=== PATIENT | female | born 1960 | race Caucasian/White ===

== ENCOUNTER → 2016-04-25 10:50 | Outpatient (CLI) | payer OTHER | END | disposition home or self-care (01) | LOC: D.CT 10:50 | DX: R41.3 Other amnesia (principal) ==

== ENCOUNTER → 2017-05-03 09:20 | Outpatient (CLI) | payer OTHER ==
--- NOTE | ~2017-05-03 | EC ---
PATIENT:RONALD CHAVEZ DATE OF SERVICE: 05/03/17 SEX: F MEDICAL RECORD: [id number] DATE OF : [birth year] LOCATION[facility] AGE OF PATIENT: 57 ADMISSION DATE: 05/03/17 REFERRING PHYSICIAN: INTERPRETING PHYSICIAN: JUAN BOYKIN MD ECHOCARDIOGRAM REPORT ECHO CHARGES 4 ECHO COMPLETE CLINICAL DIAGNOSIS: PALPITATIONS ECHOCARDIOGRAPHIC MEASUREMENTS (adult normal given) AC root (d.<3.7cm) 3.2 cm LV Septum d (<1.2 cm> 1.3 cm Valve Excursion 1.6 cm LV Septum (systole) 1.4 cm Left Atria (s.<4.0cm> 3.6 cm LVPW d(<1.2cm) 1.4 cm RV (d.<2.3cm) 3.5 cm LVPW (sytole) 1.7 cm LV diastole(<5.6CM) 5.2 cm MV E-F(>70mm/sec) cm LV systole 4.0 cm LVOT Diameter 1.7 cm MV exc.(>10mm) 1.3 cm Est.ejection fraction (50-75%) % Pericardial Effusion N DOPPLER: LVIT cm/sec A 74.0 cm/sec E 88.0 cm/sec LA cm/sec RVSP 20 mmHg LVOT 94 cm/sec AOP1/2T m/s Asc. Ao 159 cm/sec RVOT 137 cm/sec RA cm/sec PA 178 cm/sec AV Gradient Peak 10.17mmHg AV Mean 5.85 mmHg AV Area 1.4 cm MV Gradient Peak 6.54 mmHg MV Mean 2.93 mmHg MV Area cm COMMENTS: Associate Account Executive: Drake GORDON Cadmium Burner: 4 Dr. Boykin TAPE# PACS DATE OF SERVICE: 05/03/2017 PROCEDURE: Transthoracic echocardiogram. FINDINGS: 1. Left ventricle has mild left ventricular hypertrophy with inflow characteristics that are normal. The ejection fraction is 65%. 2. The left atrium is normal size, normal function. 3. The aortic valve is normal size, normal function, normal structure. 4. The mitral valve is normal. ECHOCARDIOGRAM REPORT [id number] RONALD CHAVEZ 5. The tricuspid valve is normal. 6. There is no pericardial effusion. 7. There is no pleural effusion. 8. IVC is seen to collapse and is normal. 9. The right atrium is mildly dilated. 10. The right ventricle is mildly dilated with normal function. CONCLUSION: The patient has evidence of mild left ventricular hypertrophy, otherwise normal echocardiogram. TRANSINT:[id number] Voice Confirmation ID: [id number] DOCUMENT ID: [id number] JUAN BOYKIN MD at 1522 CC: [id number] DICTATION DATE: 05/07/17 1106 IMPREGNATOR AND DRIER HELPER: 05/07/17 1231 DEP CLI 05/03/17 [id number] [place] [address]
[~2017-05-03 09:20] MED LIST: BAYER CHEWABLE81 MG PO; CYCLOBENZAPRINE10 MG PO; DEXILANT60 MG PO; IBUPROFEN800 MG PO; LEVOXYL100 MCG PO; LUNESTA2 M1 PO; PROZAC40 MG PO; VASOTEC20 MG PO
== END | disposition home or self-care (01) ==
LOC: D.ECHO 04-30 09:00
DX: R00.2 Palpitations (principal)

== ENCOUNTER 2017-05-16 06:21 | Outpatient (CLI) | payer OTHER ==
--- NOTE | ~2017-05-16 | HEMODYNAMI ---
PATIENT:RONALD CHAVEZ MEDICAL RECORD: [id number] : 64 LOCATION:[facility] ADMISSION DATE: 05/16/17 Generatedon:05/16/20178:55 Patient name: RONALD CHAVEZ Patient #: [id number] SSN: [id number] : 1960 Date of study: 05/16/2017 Page: Of Hemodynamic Procedure Report Patient Data Patient Demographics Procedure consent was obtained First Name: RONALD Gender: Female Last Name: SCOTT : 1960 Middle Initial: K Age: 57 year(s) Patient #: [id number] Race: SSN: [id number] Additional ID: [id number] Contact details Address: [address] [place] [address] State: [place] City: [place] Zip code: [address] Past Medical History Allergies Allergen Reaction Date Comments Reported Codeine 05/16/2017 Admission Admission Data Admission Date: 05/16/2017 Admission Time: 6:21 Arrival Date: 05/16/2017 Arrival Time: 6:21 Admit Source: Other Insurance Payor: Private health insurance Height (in.): 62 BSA: 1.93 (m2) Height (cm.): 157.48 BMI: 37.31 (kg/m2) Weight (lbs.): 204 Weight (kg.): 92.53 Lab Results Lab Result Date: 05/16/2017 Lab Result Time: 0:00 Biochemistry Name Units Result Min Max BUN mg/dl 14 --(--*-)-- 7 18 Creatinine mg/dl 0.9 --(-*--)-- 0.6 1.3 CBC Name Units Result Min Max Hemoglobin g/dl 12.2 *-(----)-- 13.5 17.5 Procedure Procedure Types Cath Procedure Diagnostic Procedure LHC LHC w/Coronaries Miscellaneous Procedures Moderate Sedation up to 30 minutes Procedure Description Procedure Date Procedure Date: 05/16/2017 Procedure Start Time: 8:38 Procedure End Time: 8:52 Procedure Staff Name Function Stevie Joseph MD Performing Physician Genia Flannery RT Monitor Brenda Bear RT Scrub Aury Perry RN Nurse Procedure Data Cath Procedure Fluoroscopy Diagnostic fluoroscopy Total fluoroscopy Time: 3.7 time: 3.7 min min Diagnostic fluoroscopy Total fluoroscopy dose: 525 dose: 525 mGy mGy Contrast Material Contrast Material Type Amount (ml) Isovue 300 45 Entry Location Entry Primary Successful Side Size Upsize Upsize Entry Closure Jacobs ccessful Closure Location (Fr) 1 (Fr) 2 (Fr) Remarks Device Remarks Radial Right 6 Fr Mechanical artery Short Compression Estimated blood loss: 5 ml Diagnostic catheters Device Type Used For End Catheter Placement DIAGNOSTIC Grandy 110cm 5 Multi-vessel Fr catheter ([id number]) Angiography DIAGNOSTIC AR MOD 5Fr Right Coronary Catheter ([id number]) Angiography Procedure Complications No complications Procedure Medications Medication Administration Route Dosage Oxygen NC 2 l/min Lidocaine 2% added to field 20 Heparin Flush Bag added to field 2 bags (1000units/500ml NS) 0.9% NaCl I.V. ml/hr Versed I.V. 1 mg Fentanyl I.V. 50 mcg Radial Cocktail I.A. 1 syringe (Verapomil 2mg/Nitro 400mcg/Heparin 1500units) Versed I.V. 1 mg Hemodynamics Rest BSA: 1.93 (m2) O2 Consumption: Estimated: 187.81 (ml/min) O2 Consumption indexed : Estimated:97.31 (ml/min/m) Heart Rate: 73 (bpm) Pressure Samples Time Site Value (mmHg) Purpose Heart Use Rate(bpm) 8:46 LV 100/14,25 EDP 93 8:46 AO 139/82(109) Pullback 82 8:46 LV 149/15,14 Pullback 82 Gradients Valve Time Site 1 Site 2 Mean SEP/DFP Peak To Heart Use (mmHg) (sec/min) Peak Rate (mmHg) (bpm) Aortic 8:46 LV AO 5 18 10 82 149/15,14 139/82(109) Calculations Valve P-P Mean Valve Index Valve Source Name Gradient Area Flow (cm2) Aortic 10 5 10 5 Snapshots Pre Cath Intra NCS Post Cath Vital Signs Time Heart Resp SPO2 etCO2 NIBP (mmHg) Rhythm Pain Sedation Rate (ipm) (%) (mmHg) Status Level (bpm) 8:25:40 72 23 98 31.3 159/80(116) NSR 0 (11) 10(A) , No pain 8:29:54 71 16 99 32 136/84(117) NSR 0 (11) 10(A) , No pain 8:34:08 77 23 97 31.2 136/87(105) NSR 0 (11) 10(A) , No pain 8:38:22 73 23 96 28.3 131/85(107) NSR 0 (11) 10(A) , No pain 8:42:28 81 25 97 25.3 115/75(95) NSR 0 (11) 10(A) , No pain 8:47:31 80 22 95 32 138/75(109) NSR 0 (11) 10(A) , No pain 8:51:43 77 22 98 32.8 130/79(106) NSR 0 (11) 10(A) , No pain Medications Time Medication Route Dose Verified Delivered Reason Notes E ffectiveness by by 8:29:38 Oxygen NC 2 l/min Stevie Buffie used for Jake caba MD 8:29:45 Lidocaine 2% added 20ml Stevie Stevie for local to vial Jake Joseph MD anesthetic field LU 8:29:51 Heparin Flush added 2 bags Stevie Stevie used for Bag to Jake Joseph MD procedure (1000units/500ml field LU NS) 8:30:01 0.9% NaCl I.V. ml/hr Stevie Buffie Per Jake Perry RN physician 8:37:10 Versed I.V. 1 mg Stevie Buffie for sedation Jake Perry RN, MD 8:37:16 Fentanyl I.V. 50 mcg Stevie Buffie for sedation Jake Perry RN, MD 8:39:34 Versed I.V. 1 mg Stevie Buffie for sedation Jake Perry RN, MD 8:42:13 Radial Cocktail I.A. 1 Stevie Stevie for (Verapomil syringe Jake Joseph MD vasodilation 2mg/Nitro 400mcg/Heparin 1500units) Procedure Log Time Note 8:08:51 Diagnostic Cath Status : Elective 8:09:58 Genia Flannery RT(R) sent for patient. Start room use. 8:09:59 Time tracking: Regular hours 8:10:06 Plan of Care:Hemodynamics will remain stable., Cardiac rhythm will remain stable., Comfort level will be maintained., Respiratory function will remain adequate., Patient/ family verbilizes understanding of procedure., Procedure tolerated without complication., Recovers from procedure without complications.. 8:12:44 Informed consent obtained and on chart 8:12:58 Patient Height : 62 inches 8:13:01 Patient Weight : 204 lbs 8:13:01 Admit Source: Other 8:13:07 Arrival Date: 05/16/2017 6:21:00 AM 8:13:14 Insurance Payor : Private health insurance 8:15:44 Lab Result : Hemoglobin 12.2 g/dl 8:15:44 Lab Result : Creatinine 0.9 mg/dl 8:15:44 Lab Result : BUN 14 mg/dl 8:18:56 Patient received from Pre/Post Procedure Room to CCL 2 Alert and oriented. Tansferred to table in Supine position. 8:18:57 Warm blankets applied, and gaurang hugger turned on for patient comfort. 8:18:57 Correct patient and procedure confirmed by team. 8:18:58 ECG and BP/O2 sat monitors applied to patient. 8:20:36 Full Disclosure recording started 8:20:48 H&P Date Dictated: 05/13/2017 Within 30 days and on chart., H&P Addendum completed by physician on day of procedure. (MUST COMPLETE FOR ALL OUTPATIENTS). 8:20:49 Pre-procedure instructions explained to patient. 8:20:49 Pre-op teaching completed and patient verbalized understanding. 8:20:53 Family in patients room. 8:20:54 Patient NPO since Midnight. 8:21:03 Patient allergic to Codeine 8:21:09 Is the patient allergic to Iodine/contrast media? No. 8:21:11 Is patient on blood thinner?Yes 8:21:13 ACC The patient was administered the following blood thiners within the last 24 hours: ACCPlavix 8:21:15 Patient diabetic? No. 8:21:18 Previous problem with sedation/anesthesia? No ? 8:21:20 Snore? Yes 8:21:21 Sleep apnea? No 8:21:23 Deviated septum? No 8:21:24 Opens mouth fully? Yes 8:21:25 Sticks out tongue? Yes 8:21:27 Airway obstruction? No ? 8:21:30 Dentures? No ? 8:24:27 Vital chart was started 8:28:44 Modified Ugo's test Radial < 7 seconds 8:28:47 Patient pain scale 0/10 ?. 8:28:53 IV patent on arrival in left forearm with 0.9% NaCl at [facility]. 8:28:56 Lab results completed and on chart. 8:28:59 Right Radial & Right Groin area was prepped with chlora-prep and draped in sterile fashion 8:29:00 Alarms reviewed by R. N. 8:29:01 Sharps counted by scrub and verified by R.N. 8:29:38 Oxygen 2 l/min NC was administered by Aury Perry RN; used for procedure; 8::45 Lidocaine 2% 20ml vial added to field was administered by Stevie Joseph MD; for local anesthetic; 8:29:51 Heparin Flush Bag (1000units/500ml NS) 2 bags added to field was administered by Stevie Joseph MD; used for procedure; 8:30:01 0.9% NaCl ml/hr I.V. was administered by Aury Perry RN; Per physician; 8:31:42 Physician arrived 8:31:43 --------ALL STOP TIME OUT------ 8:31:44 Final Timeout: patient, procedure, and site verified with staff and physician. All members of the team are in agreement. 8:31:47 Right Radial & Right Groin site verified by team. 8:31:50 Physical assessment completed. ASA score P 2 - A patient with mild systemic disease as per Stevie Joseph MD. 8:31:53 Sedation plan: IV Moderate Sedation Medication:Versed, Fentanyl 8:31:57 Use device set Radial Dx or PCI 8:31:59 ACIST Syringe (82253) opened to sterile field. 8:31:59 Medline Cath Pack ([id number]) opened to sterile field. 8:32:00 Bag Decanter (2002S) opened to sterile field. 8:32:01 SHEATH 6FR Slender ([id number]) opened to sterile field. 8:32:02 DIAGNOSTIC WIRE .035 260cm J wire ([id number]) opened to sterile field. 8:32:04 ACIST Hand Control (85879) opened to sterile field. 8:32:04 ACIST Manifold (27202) opened to sterile field. 8:32:06 MBrace Wrist Support ([id number]) opened to sterile field. 8:35:01 Zero performed for pressure channel P1 8:35:06 Zero performed for pressure channel P1 8:35:14 Zero performed for pressure channel P1 8:35:24 Zero performed for pressure channel P1 8:37:10 Versed 1 mg I.V. was administered by Aury Perry RN; for sedation; 8:37:16 Fentanyl 50 mcg I.V. was administered by Aury Perry RN; for sedation; 8:38:43 Procedure started. 8:38:47 Local anesthetic to right radial artery with Lidocaine 2% by Stevie Joseph MD.INITIAL ACCESS ONLY 8:38:57 A 6 Fr Short sheath was inserted into the Right Radial artery 8:39:25 Baseline sample Acquired. 8:39:34 Versed 1 mg I.V. was administered by Aury Perry RN; for sedation; 8:41:56 A DIAGNOSTIC Grandy 110cm 5 Fr catheter ([id number]) was advanced over the wire and used for Multi-vessel Angiography. 8:42:13 Radial Cocktail (Verapomil 2mg/Nitro 400mcg/Heparin 1500units) 1 syringe I.A. was administered by Stevie Joseph MD; for vasodilation; 8:43:44 LCA angiography performed. 8:44:06 Injector settings: Ml/sec: 3, Volume: 6, 8:45:50 GLIDE WIRE ANGLE 260cm ([id number]) opened to sterile field. 8:46:40 LV gram done using GLEASON 8:47:08 Injector settings: Ml/sec: 5, Volume: 15, 8:47:10 LV hemodynamics recorded. 8:47:18 EF : 55 % 8:47:33 Catheter removed. 8:48:35 A DIAGNOSTIC AR MOD 5Fr Catheter ([id number]) was advanced over the wire and used for Right Coronary Angiography. 8:49:42 RCA angiography performed. 8:49:44 Injector settings: Ml/sec: 3, Volume: 6, 8:50:28 Catheter removed. 8:50:45 TR BAND Standard ([id number]) opened to sterile field. 8:51:15 Sheath removed intact; hemostasis achieved with Mechanical Compression to the Right Radial artery. 8:51:16 Procedure ended.(Physican Out) 8:52:04 Fluoroscopy time 03.70 minutes. 8:52:08 Fluoroscopy dose: 525 mGy 8:52:08 Flurop Dose total: 525 8:52:12 Contrast amount:Isovue 300 45ml. 8:52:14 Sharps counted by scrub and verified by R.N. 8:52:16 TR band inflated with 11cc of air. 8:52:18 Insertion/operative site no bleeding no hematoma. 8:52:21 Post right radial artery:stable 8:52:23 Post Procedure Pulses reassessed and unchanged 8:52:25 Post procedure rhythm: unchanged. 8:52:27 Estimated blood loss: 5 ml 8:52:29 Post procedure instruction explained to patient.Patient verbalizes understanding. 8:52:29 Patient needs reinforcement of post procedure teaching. 8:52:39 Procedure type changed to Cath procedure, Diagnostic procedure, LHC, LHC w/Coronaries, Miscellaneous Procedures, Moderate Sedation up to 30 minutes 8:52:40 Procedure and supply charges have been captured, reviewed, submitted and are correct. 8:52:46 Procedure Complication : No complications 8:52:48 Vital chart was stopped 8:52:49 See physician's report for complete and final results. 8:52:52 Report given to Pre/Post Procedure Room. 8:52:54 Patient transfered to Pre/Post Procedure Room with Stretcher. 8:52:56 Procedure ended. 8:52:56 Full Disclosure recording stopped 8:53:00 End room use (Document Last) Device Usage Item Name Manufacture Quantity Catalog Hospital Part Current Minima l Lot# / Number Charge Number Stock Stock Serial# Code ACIST Acist 1 37351 304386 592651 948385 20 Syringe Bufys (17467) Systems Inc Medline Cath Cardinal 1 [id number] 557010 47688 125599 5 Pack Health ([id number]) Bag Decanter Microtek 1 245219 98182 085517 5 () Medical Inc. SHEATH 6FR Terumo 1 [id number] 092980 039647 015350 40 Slender ([id number]) DIAGNOSTIC St Shabbir 1 878782 946749 758535 555822 30 WIRE .035 260cm J wire (914186) ACIST Hand Acist 1 78653 237575 493039 231647 5 Control Medical (41487) Systems Inc ACIST Acist 1 85279 696807 961035 640923 5 Manifold Medical (63002) Systems Inc MBrace Wrist Advanced 1 140-0250-00 112447 04139 873161 5 Support Vascular ([id number]) Dynamics DIAGNOSTIC Terumo 1 40-3643 148912 737186 125257 5 Grandy 110cm 5 Fr catheter (853635) GLIDE WIRE Terumo 1 TO9055 185540 711399 741941 5 ANGLE 260cm (YX4280) DIAGNOSTIC Cardinal 1 [id number] 552702 284254 395033 15 AR MOD 5Fr Health Catheter (228552X) TR BAND Terumo 1 [id number] 077779 870016 022482 40 Standard ([id number]) Signature Audit Kingsley Stage Time Signature Unsigned Intra-Procedure 05/16/2017 Genia Flannery 8:54:51 AM RT(R) Signatures Monitor : Genia Flannery RT Signature : Date : Time : [id number] [place], [place] [id number]
[2017-05-16] MEDS ORDERED: IBUPROFEN800 MG PO (07:16)
[2017-05-16] MEDS ORDERED: DEXILANT60 MG PO (07:17)
[2017-05-16] MEDS ORDERED: PROZAC40 MG PO (07:17)
[2017-05-16] MEDS ORDERED: VASOTEC20 MG PO (07:17)
[2017-05-16] MEDS ORDERED: BAYER CHEWABLE81 MG PO (07:18)
[2017-05-16] MEDS ORDERED: LEVOXYL100 MCG PO (07:18)
[2017-05-16] MEDS ORDERED: LUNESTA2 M1 PO (07:18)
[2017-05-16] MEDS ORDERED: CYCLOBENZAPRINE10 MG PO (07:19)
[2017-05-16 07:23] VITALS: BP 143/75
[2017-05-16 07:30] LABS: BASOPHILS 0.3 % (0-2); EOSINOPHILS 1.7 % (0-7); HEMATOCRIT 36.4 % (36.0-48.0); HEMOGLOBIN 12.2 g/dL (12-16); IMMATURE GRANULOCYTES 0.2 % (0-5); LYMPHOCYTES 26.7 % (15-50); MCH 28.4 pg (26.0-34.0); MCHC 33.5 g/dL (31.0-37.0); MCV 84.8 fL (80.0-100.0); MEAN PLATELET VOLUME 10.5 fL (7.4-10.4); MONOCYTES 10.2 % (2-11); NEUTROPHILS 60.9 % (40-80); PLATELET COUNT 265 10x3/uL (130-400); RBC 4.29 10x6/uL (4.00-5.40); RDW 14.5 % (11.5-14.5); WBC 5.8 10x3/uL (4.8-10.8)
[2017-05-16 07:48] LABS: ANION GAP 13.8 mmol/L (8-16); CALCIUM 8.6 mg/dL (8.5-10.1); CARBON DIOXIDE 24.9 mmol/L (21.0-32.0); CREATININE - SERUM 0.9 mg/dL (0.6-1.3); POTASSIUM - SERUM 3.7 mmol/L (3.5-5.1)
== END 2017-05-16 11:28 | disposition home or self-care (01) ==
LOC: D.CATH 06:21
PROVIDERS: Internal Medicine Cardiovascular Disease
DX: I25.10 Atherosclerotic heart disease of native coronary artery without angina pectoris (principal); Z01.812 Encounter for preprocedural laboratory examination

== ENCOUNTER 2018-10-13 08:00 | Outpatient (CLI) | payer OTHER | END 2018-10-13 23:59 | disposition home or self-care (01) | LOC: D.MAMMO 08:00 | PROVIDERS: ATTEND Family Medicine | DX: Z12.31 Encounter for screening mammogram for malignant neoplasm of breast (principal) ==

== ENCOUNTER 2018-11-24 08:00 | Outpatient (CLI) | payer OTHER | END 2018-11-24 23:59 | disposition home or self-care (01) | LOC: D.MAMMO 08:00 | PROVIDERS: ATTEND Family Medicine | DX: R92.8 Other abnormal and inconclusive findings on diagnostic imaging of breast (principal) ==